=== PATIENT | male | born 2000 | race Two or more races ===

== ENCOUNTER 2023-07-31 08:12 | Emergency (ER) | payer BC ==
[2023-07-31 08:43] VITALS: BP 127/76; PULSE 51; RESP 18; TEMP 97.9; BMI 26.6
[2023-07-31] MEDS: LACTATED RINGERS SOLUTION 1000 ML INFUS.BAG IV ONE (08:52)
[2023-07-31 08:59] LABS: BASO % 0.8 % (0-2.0); EOS % 1.9 % (0-4.5); HEMATOCRIT 41.5 % (35.4-49); HEMOGLOBIN 13.7 GM/dL (11.7-16.9); LYMPH % 34.4 % (8-40); MCH 31.2 pg (25.7-33.7); MCHC 33.1 g/dl (32.0-35.9); MEAN CELL VOLUME 94.4 fl (80-96); MEAN PLT VOLUME 9.7 fl (7.5-11.1); MONO % 7.9 % (3.8-10.2); PLATELET COUNT 134 10^3/uL (134-434); RBC 4.39 M/mm3 (4.00-5.60); RDW 12.9 % (11.9-15.9); WHITE BLOOD COUNT 6.3 K/mm3 (4.0-10.0)
[2023-07-31 09:26] LABS: POTASSIUM 3.6 mmol/L (3.5-5.1)
[2023-07-31 09:28] LABS: CALCIUM 9.1 mg/dL (8.5-10.1)
[2023-07-31 09:29] LABS: BLOOD UREA NITROGEN 18.5 mg/dL (7-18); MAGNESIUM 2.4 mg/dL (1.8-2.4)
[2023-07-31 09:32] LABS: CREATININE 0.8 mg/dL (0.55-1.3)
[2023-07-31 09:33] LABS: BILIRUBIN,TOTAL 0.4 mg/dL (0.2-1)
== END 2023-07-31 10:51 | disposition home or self-care (01) ==
LOC: JER 08:12
DX: R55 Syncope and collapse (principal); R53.1 Weakness; R10.84 Generalized abdominal pain; B97.4 Respiratory syncytial virus as the cause of diseases classified elsewhere; Z20.822 Contact with and (suspected) exposure to COVID-19
CPT/HCPCS: 0241U-QW; 36415; 80053; 83735; 84484; 85025; 93005; 93010; 99284-25